=== PATIENT | female | born 1985 | race Caucasian/White ===

== ENCOUNTER 2017-09-12 22:52 | Emergency (ER) | payer SELFPAY ==
--- NOTE | 2017-09-12 23:53 | ED PDOC ---
HPI: Back Time Seen by Provider: 09/12/17 23:25 Chief Complaint (Nursing): Chest Pain Chief Complaint (Provider): Chest Pain, Back Pain History Per: Patient History/Exam Limitations: no limitations Onset/Duration Of Symptoms: Days (x1) Current Symptoms Are (Timing): Better Additional Complaint(s): Salome Vega is a 32-year-old female who presents to the emergency department complaining that last night she was unable to sleep and felt as if her mouth was dry. All day today while drinking water she noticed chest pain radiating to her back. Patient denies any associated nausea, vomiting, or abdominal pain. Currently she denies having chest pain, but the back pain persists. No shortness of breath, cough, or fever associated. PMD: None provided Past Medical History Reviewed: Historical Data, Nursing Documentation, Vital Signs Vital Signs: Last Vital Signs Temp 98.0 F 09/12/17 22:58 Pulse 80 09/12/17 22:58 Resp 16 09/12/17 22:58 BP 129/91 H 09/12/17 22:58 Pulse Ox 98 09/12/17 22:58 - Surgical History Surgical History: Cholecystectomy - Family History Family History: States: Unknown Family Hx - Home Medications Home Medications: Ambulatory Orders Medication Instructions Recorded Cyclobenzaprine HCl [Flexeril] 10 mg PO HS #7 tab 08/27/14 Ibuprofen 600 mg PO Q6H PRN #15 tab 08/27/14 Oxycodone HCl/Acetaminophen 1 tab PO Q6 PRN #10 tab 08/27/14 [Percocet 325 mg-5 mg] Dicyclomine [Bentyl] 20 mg PO Q12 PRN #20 tab 11/05/14 Ondansetron [Zofran Odt] 4 mg PO Q8 #12 odt 11/05/14 Oseltamivir [Tamiflu] 75 mg PO BID #10 cap 11/05/14 Esomeprazole Magnesium [Nexium] 20 mg PO DAILY #30 ecc 04/03/15 Albuterol [Proventil] 0.09 2 IH Q6 PRN #1 inhaler 07/04/15 Azithromycin [Zithromax Z-Dick] 250 mg PO DAILY #1 tab 07/04/15 Methylprednisolone [Medrol Dosepak] 4 mg PO ASDIR #1 pkg 07/04/15 Omeprazole 20 mg PO DAILY #30 capsule. 09/13/17 - Allergies Allergies/Adverse Reactions: Allergies Allergy/AdvReac Type Severity Reaction Status Date / Time No Known Allergies Allergy Verified 09/12/17 22:58 Review of Systems ROS Statement: Except As Marked, All Systems Reviewed And Found Negative Constitutional: Negative for: Fever ENT: Positive for: Other (dry mouth) Cardiovascular: Positive for: Chest Pain Respiratory: Negative for: Cough, Shortness of Breath Gastrointestinal: Negative for: Nausea, Vomiting, Abdominal Pain Musculoskeletal: Positive for: Back Pain Physical Exam - Reviewed Nursing Documentation Reviewed: Yes Vital Signs Reviewed: Yes - Physical Exam Appears: Positive for: Non-toxic, No Acute Distress Head Exam: Positive for: ATRAUMATIC, NORMOCEPHALIC Skin: Positive for: Normal Color, Warm, Dry Eye Exam: Positive for: EOMI, Normal appearance, PERRL ENT: Positive for: Normal ENT Inspection Neck: Positive for: Normal, Painless ROM, Supple Cardiovascular/Chest: Positive for: Regular Rate, Rhythm, Chest Non Tender. Negative for: Murmur Respiratory: Positive for: Normal Breath Sounds. Negative for: Respiratory Distress Gastrointestinal/Abdominal: Positive for: Normal Exam, Soft. Negative for: Tenderness Back: Positive for: Normal Inspection. Negative for: L CVA Tenderness, R CVA Tenderness, Vertebral Tenderness Extremity: Positive for: Normal ROM. Negative for: Pedal Edema, Deformity Neurologic/Psych: Positive for: Alert, Oriented. Negative for: Motor/Sensory Deficits - Laboratory Results Result Diagrams: 09/12/17 23:55 09/12/17 23:55 - ECG O2 Sat by Pulse Oximetry: 98 (RA) Pulse Ox Interpretation: Normal Medical Decision Making Medical Decision Making: Time: 23:31 Initial Impression: Reflux Initial Plan: --BMP --Lipase --LFT [liver profile] --Troponin I --CBC --Chest x-ray --Lidocaine 2% 15ml PO --Maalox Plus 30ml PO --Pepcid 20mg PO --Pending reevaluation Labs reviewed, and are grossly normal. Time: 00:28 Upon provider evaluation patient is feeling better, appears medically stable, and requires no further treatment in the ED at this time. Patient will be discharged with Rx for omeprazole. Counseling was provided and all questions were answered regarding diagnosis and need for follow up with the clinic. All questions answered. There is agreement to discharge plan. Return precautions discussed in detail. Scribe Attestation: Documented by Luba Wood, acting as a scribe for Bharat Barker MD Provider Scribe Attestation: All medical record entries made by the Scribe were at my direction and personally dictated by me. I have reviewed the chart and agree that the record accurately reflects my personal performance of the history, physical exam, medical decision making, and the department course for this patient. I have also personally directed, reviewed, and agree with the discharge instructions and disposition. Disposition - Clinical Impression Clinical Impression: Atypical chest pain - Patient ED Disposition Is Patient to be Admitted: No Counseled Patient/Family Regarding: Studies Performed, Diagnosis, Need For Followup, Rx Given - Disposition Referrals: [facility] [Outside] Disposition: Routine/Home Disposition Time: 00:28 Condition: STABLE Prescriptions: Omeprazole 20 mg PO DAILY #30 capsule. Instructions: Diet for Ulcers and Gastritis (ED), Gastroesophageal Reflux Disease (ED), Noncardiac Chest Pain (ED) Forms: [employer] (Kiswahili) - POA Present On Arrival: None
[2017-09-12] MEDS ORDERED: Alum-Mag Hydrox-Simethicone Susp (30 mL) ONE (23:54)
[2017-09-13 00:06] LABS: HEMOGLOBIN 12.4 g/dL (12.0-16.0); MEAN CORPUSCULAR HEMOGLOBIN 28.9 pg (27.0-31.0); MEAN CORPUSCULAR HGB CONC 33.2 g/dL (33.0-37.0); RBC 4.3 Mil/uL (3.80-5.20); WHITE BLOOD COUNT 9.1 K/uL (4.8-10.8)
[2017-09-13 00:15] LABS: ALB/GLOB RATIO 1.2 (1.0-2.1); ALBUMIN 3.9 g/dL (3.5-5.0); ALT/SGPT 42 U/L (9-52); AST/SGOT 30 U/L (14-36); BILIRUBIN,DIRECT 0.4 mg/ml (0.0-0.4); BLOOD UREA NITROGEN 14 mg/dl (7-17); CALCIUM 8.7 mg/dL (8.4-10.2); GFR AFRICAN-AMERICAN > 60; GFR NON-AFRICAN AMERICAN > 60; LIPASE 157 U/L (23-300)
[2017-09-13] MEDS: Alum-Mag Hydrox-Simethicone Susp (30 mL) PO STA (00:16)
[2017-09-13 01:04] VITALS: BP 125/79; PULSE 84; RESP 17; TEMP 98.3
[2017-09-13 03:23] VITALS: O2SAT 98
--- NOTE | 2017-09-13 12:58 | RAD ---
HISTORY: cp, back pain COMPARISON: Chest x-ray performed 07/04/15 TECHNIQUE: Chest PA and lateral FINDINGS: Examination limited by habitus. LUNGS: No focal consolidation. Tiny probable calcified granuloma, left lateral lung field, stable. Please note that chest x-ray has limited sensitivity for the detection of pulmonary masses. PLEURA: No significant pleural effusion identified. No definite pneumothorax . CARDIOVASCULAR: Heart size appears within normal limits. OSSEOUS STRUCTURES: Mild degenerative changes. VISUALIZED UPPER ABDOMEN: Cholecystectomy clips. OTHER FINDINGS: None. IMPRESSION: No focal consolidation, significant pleural effusion, or definite pneumothorax identified.
== END 2017-09-13 00:45 | disposition home or self-care (01) ==
LOC: H.ER 22:52
DX: K21.9 Gastro-esophageal reflux disease without esophagitis (principal)

== ENCOUNTER 2018-10-29 23:54 | Emergency (ER) | payer SELFPAY ==
[2018-10-30 00:17] VITALS: BP 125/79; PULSE 78; RESP 18; TEMP 97.9; O2SAT 99
[2018-10-30] MEDS ORDERED: Lidocaine/Epi 1% 1:100000 20 ML IJ ONE (03:00)
[2018-10-30] MEDS ORDERED: Lidocaine 1% w Epi 1:100,000 Inj ONE (03:08)
--- NOTE | 2018-10-30 04:05 | ED PDOC ---
HPI: Skin/Bite Injury Time Seen by Provider: 10/30/18 02:50 Chief Complaint (Nursing): Abnormal Skin Integrity Chief Complaint (Provider): Abnormal Skin Integrity History Per: Patient History/Exam Limitations: no limitations Onset/Duration Of Symptoms: Days (month) Additional Complaint(s): 33 y/o female states that she has a skin tag on her scalp for the past month. Patient reports the area became more irritated and she scratched it causing it to bleed. Patient states that the area was painful and pain radiated around that side of her head causing itchiness as well. Wilbur fever, weight loss, chills, vision changes, weakness, numbness, or tingling. Past Medical History Reviewed: Historical Data, Nursing Documentation, Vital Signs Vital Signs: Last Vital Signs Temp 97.9 F 10/30/18 00:15 Pulse 78 10/30/18 00:15 Resp 18 10/30/18 00:15 BP 125/79 10/30/18 00:15 Pulse Ox 99 10/30/18 00:15 - Medical History PMH: No Chronic Diseases - Surgical History Surgical History: Cholecystectomy - Family History Family History: States: Unknown Family Hx - Home Medications Home Medications: Ambulatory Orders Medication Instructions Recorded Cyclobenzaprine HCl [Flexeril] 10 mg PO HS #7 tab 08/27/14 Ibuprofen 600 mg PO Q6H PRN #15 tab 08/27/14 Oxycodone HCl/Acetaminophen 1 tab PO Q6 PRN #10 tab 08/27/14 [Percocet 325 mg-5 mg] Dicyclomine [Bentyl] 20 mg PO Q12 PRN #20 tab 11/05/14 Ondansetron [Zofran Odt] 4 mg PO Q8 #12 odt 11/05/14 Oseltamivir Cap [Tamiflu] 75 mg PO BID #10 cap 11/05/14 Esomeprazole Magnesium [Nexium] 20 mg PO DAILY #30 ecc 04/03/15 Albuterol [Proventil] 0.09 2 IH Q6 PRN #1 inhaler 07/04/15 Azithromycin [Zithromax Z-Dick] 250 mg PO DAILY #1 tab 07/04/15 Methylprednisolone [Medrol Dosepak] 4 mg PO ASDIR #1 pkg 07/04/15 Omeprazole 20 mg PO DAILY #30 capsule. 09/13/17 - Allergies Allergies/Adverse Reactions: Allergies Allergy/AdvReac Type Severity Reaction Status Date / Time No Known Allergies Allergy Verified 09/12/17 22:58 Review of Systems ROS Statement: Except As Marked, All Systems Reviewed And Found Negative Constitutional: Negative for: Fever, Chills, Weakness, Weight loss Eyes: Negative for: Vision Change Skin: Positive for: Other (skin tag) Neurological: Negative for: Weakness, Numbness Physical Exam - Reviewed Nursing Documentation Reviewed: Yes Vital Signs Reviewed: Yes - Physical Exam Appears: Positive for: Well, Non-toxic, No Acute Distress Head Exam: Negative for: NORMAL INSPECTION (2 cm skin tag to right side of scalp, appears irritated with dry blood) Skin: Positive for: Normal Color, Warm, DRY Eye Exam: Positive for: EOMI, Normal appearance, PERRL ENT: Positive for: Normal ENT Inspection Neurological/Psych: Positive for: Awake, Alert, Normal Tone. Negative for: Motor/Sensory Deficits - ECG O2 Sat by Pulse Oximetry: 99 (RA) Pulse Ox Interpretation: Normal Medical Decision Making Medical Decision Making: Time: 03:00 A/P: 33 y/o with skin tag. Will perform skin tag procedure 03:24 Performed skin tag removal procedure. Patient tolerated procedure well and reports improvement of symptoms. She will be discharge home. Patient advised to follow up [facility]. Procedure Note- Procedure: skin tag removal --3cc's of lidocaine with epi used --site cleaned with alcohol --11 blade used to incise skin tag --patient tolerated procedure well ------ Scribe Attestation: Documented by Maximino Salvador, acting as a scribe Aleksandra Barker MD. Provider Scribe Attestation: All medical record entries made by the Scribe were at my direction and personally dictated by me. I have reviewed the chart and agree that the record accurately reflects my personal performance of the history, physical exam, medical decision making, and the department course for this patient. I have also personally directed, reviewed, and agree with the discharge instructions and disposition. Disposition - Clinical Impression Clinical Impression: Skin tag - Patient ED Disposition Is Patient to be Admitted: No - Disposition Referrals: [facility] [Outside] Disposition: Routine/Home Disposition Time: 03:24 Condition: IMPROVED Additional Instructions: GARFIELD EGAN, thank you for letting us take care of you today. Your provider was Bharat Barker MD and you were treated for HEAD PAIN. The emergency medical care you received today was directed at your acute symptoms. If you were prescribed any medication, please fill it and take as directed. It may take several days for your symptoms to resolve. Return to the Emergency Department if your symptoms worsen, do not improve, or if you have any other problems. Please contact your doctor or call one of the physicians/clinics you have been referred to that are listed on the Patient Visit Information form that is included in your discharge packet. Bring any paperwork you were given at discharge with you along with any medications you are taking to your follow up visit. Our treatment cannot replace ongoing medical care by a primary care provider outside of the emergency department. Thank you for allowing the [facility] team to be part of your care today. If you had an X-Ray or CT scan: A Radiologist will review the ED reading if any change in treatment is needed we will contact you. If you had a blood, urine, or wound culture: It will take several days for the results, if any change in treatment is needed we will contact you. If you had an STI test: It will take 48 hours for the results. Please call after 1 week if you have not heard back. Instructions: Skin Tags (Acro[employer]) Forms: [employer] (Fijian), [facility] ED School/Work Excuse Print Language: AFGHAN
== END 2018-10-30 03:26 | disposition home or self-care (01) ==
LOC: H.ER 23:54
DX: L91.8 Other hypertrophic disorders of the skin (principal)

== ENCOUNTER 2018-12-18 01:58 | Emergency (ER) | payer SELFPAY ==
[2018-12-18 02:15] VITALS: BP 118/76; PULSE 89; RESP 17; TEMP 98.5; O2SAT 97
--- NOTE | 2018-12-18 02:31 | ED PDOC ---
HPI: Headache Time Seen by Provider: 12/18/18 02:02 Chief Complaint (Nursing): Abnormal Skin Integrity Chief Complaint (Provider): Abnormal Skin Integrity History Per: Patient History/Exam Limitations: no limitations Onset/Duration Of Symptoms: Persistent (x 3 months) Current Symptoms Are (Timing): Still Present Quality: "Pain" Preceeding Symptoms: None Additional Complaint(s): 33 year old female with no significant medical history presents to the ED for evaluation of headache and a scalp lesion since September. The patient was seen in this ED on 10/29/2018 about a mass on her right scalp. She was diagnosed with a skin tag which was subsequently removed by a provider in this ED. Patient states that it has since grown back, has become painful to her and at times, she feels a sense of itchiness. Patient also believes that the mass causes generalized headaches. Denies fever, nausea, vomiting, photophobia, neck pain and visual changes. PMD: none provided Past Medical History Reviewed: Historical Data, Nursing Documentation, Vital Signs Vital Signs: Last Vital Signs Temp 98.5 F 12/18/18 02:11 Pulse 89 12/18/18 02:11 Resp 17 12/18/18 02:11 BP 118/76 12/18/18 02:11 Pulse Ox 97 12/18/18 02:11 Primary Care Provider: FAMILY PROVIDER,NO - Medical History PMH: No Chronic Diseases - Surgical History Surgical History: Cholecystectomy - Family History Family History: States: Unknown Family Hx - Home Medications Home Medications: Ambulatory Orders Medication Instructions Recorded Cyclobenzaprine HCl [Flexeril] 10 mg PO HS #7 tab 08/27/14 Ibuprofen 600 mg PO Q6H PRN #15 tab 08/27/14 Oxycodone HCl/Acetaminophen 1 tab PO Q6 PRN #10 tab 08/27/14 [Percocet 325 mg-5 mg] Dicyclomine [Bentyl] 20 mg PO Q12 PRN #20 tab 11/05/14 Ondansetron [Zofran Odt] 4 mg PO Q8 #12 odt 11/05/14 Oseltamivir Cap [Tamiflu] 75 mg PO BID #10 cap 11/05/14 Esomeprazole Magnesium [Nexium] 20 mg PO DAILY #30 ecc 04/03/15 Albuterol [Proventil] 0.09 2 IH Q6 PRN #1 inhaler 11/21/15 Azithromycin [Zithromax Z-Dick] 250 mg PO DAILY #1 tab 07/04/15 Methylprednisolone [Medrol Dosepak] 4 mg PO ASDIR #1 pkg 07/04/15 Omeprazole 20 mg PO DAILY #30 capsule. 09/13/17 - Allergies Allergies/Adverse Reactions: Allergies Allergy/AdvReac Type Severity Reaction Status Date / Time No Known Allergies Allergy Verified 12/18/18 02:14 Review of Systems ROS Statement: Except As Marked, All Systems Reviewed And Found Negative Constitutional: Negative for: Fever Eyes: Negative for: Vision Change, Other (photophobia) Gastrointestinal: Negative for: Nausea, Vomiting Skin: Positive for: Other (skin tag on right scalp) Neurological: Positive for: Headache Physical Exam - Reviewed Nursing Documentation Reviewed: Yes Vital Signs Reviewed: Yes - Physical Exam Appears: Positive for: No Acute Distress Head Exam: Positive for: NORMOCEPHALIC (Right scalp: 1 cm exophytic, pink, round tender globular skin tag) Skin: Positive for: Warm, Dry Eye Exam: Positive for: EOMI, Normal appearance, PERRL Cardiovascular/Chest: Positive for: Regular Rate, Rhythm. Negative for: Murmur Respiratory: Positive for: Normal Breath Sounds. Negative for: Respiratory Distress Extremity: Positive for: Normal ROM (x 4). Negative for: Deformity Neurological/Psych: Positive for: Awake, Alert, Normal Tone, Oriented (x 3). Negative for: Motor/Sensory Deficits - Laboratory Results Result Diagrams: 12/18/18 03:05 12/18/18 03:05 - ECG O2 Sat by Pulse Oximetry: 97 (RA) Pulse Ox Interpretation: Normal Medical Decision Making Medical Decision Makin:29 Impression: headache and recurrent scalp skin tag Initial Plan: --CT Head --CMP --CBC --ESR --Urine dip --Urine preg --Reglan 10 mg IVPB 03:23 CT Head Normal size of the ventricles and extra-axial spaces for the patient's age. Normal white matter tracts of the supratentorial brain. Normal basal ganglia and thalami. Normal brainstem. Normal cerebellum. There is no demonstrated extra-axial, intraparenchymal, or intraventricular hemorrhage. There are no findings of an acute ischemic infarction. Normal calvarium. There is no demonstrated fracture. Normal soft tissue structures. Normal visualized paranasal sinuses. IMPRESSION: Normal unenhanced CT scan of the brain. Scribe Attestation: Documented by Prerna Reaves, acting as a scribe for Gagan Young MD Provider Scribe Attestation: All medical record entries made by the Scribe were at my direction and personally dictated by me. I have reviewed the chart and agree that the record accurately reflects my personal performance of the history, physical exam, medical decision making, and the department course for this patient. I have also personally directed, reviewed, and agree with the discharge instructions and disposition Disposition - Clinical Impression Clinical Impression: Skin tag - Disposition Referrals: Dakotah Mansfield MD [Staff Provider] - Disposition Time: 05:00 Condition: STABLE Instructions: Skin Tags (Acrochordon) Forms: [employer] (Greek)
[2018-12-18 03:27] LABS: BASO # 0.1 K/uL (0.0-0.2); BASO % 0.7 % (0.0-2.0); EOS # 0.3 K/uL (0.0-0.7); EOS % 3.2 % (0.0-4.0); HEMOGLOBIN 14.5 g/dL (12.0-16.0); LYMPH # 2.9 K/uL (1.0-4.3); LYMPH % 31.6 % (20.0-40.0); MEAN CELL VOLUME 84.6 fl (81.0-99.0); MEAN CORPUSCULAR HEMOGLOBIN 28.5 pg (27.0-31.0); MEAN CORPUSCULAR HGB CONC 33.7 g/dL (33.0-37.0); MEAN PLATELET VOLUME 9.7 fl (7.2-11.7); MONO # 0.6 K/uL (0.0-0.8); MONO % 6.8 % (0.0-10.0); NEUT # 5.3 K/uL (1.8-7.0); NEUT % 57.7 % (50.0-75.0); RBC 5.07 Mil/uL (3.80-5.20); RED CELL DISTRIBUTION WIDTH 13.7 % (11.5-14.5); WHITE BLOOD COUNT 9.1 K/uL (4.8-10.8)
[2018-12-18 03:32] LABS: ALB/GLOB RATIO 1.2 (1.0-2.1); ALBUMIN 4.6 g/dL (3.5-5.0); BLOOD UREA NITROGEN 18 mg/dl (7-17); GFR NON-AFRICAN AMERICAN > 60
[2018-12-18 04:20] LABS: ALT/SGPT 60 U/L (9-52); AST/SGOT 49 U/L (14-36)
--- NOTE | 2018-12-18 08:37 | CT ---
Date of service: 12/18/2018 PROCEDURE: CT HEAD WITHOUT CONTRAST. HISTORY: Headache COMPARISON: 01/11/2016 TECHNIQUE: Axial computed tomography images were obtained through the head/brain without intravenous contrast. Radiation dose: Total exam DLP = 730.13 mGy-cm. This CT exam was performed using one or more of the following dose reduction techniques: Automated exposure control, adjustment of the mA and/or kV according to patient size, and/or use of iterative reconstruction technique. FINDINGS: HEMORRHAGE: No intracranial hemorrhage. BRAIN: Fleming-white matter differentiation is preserved. There is no mass, mass effect or abnormal extra-axial fluid collection. There is no territorial infarction. The midline sagittal structures are normal. VENTRICLES: The ventricles are normal in size, shape and configuration. CALVARIUM: There is no calvarial fracture or extracranial soft tissue swelling. PARANASAL SINUSES: Predominantly clear. MASTOID AIR CELLS: Predominantly clear. OTHER FINDINGS: None. IMPRESSION: No acute intracranial abnormality. A preliminary report was provided by [employer] [facility].
== END 2018-12-18 04:59 | disposition home or self-care (01) ==
LOC: H.ER 01:58
DX: L91.8 Other hypertrophic disorders of the skin (principal)
CPT/HCPCS: 70450; 80053; 81025; 85025; 85651; 99283; J2765